=== PATIENT | male | born 1990 | race Caucasian/White ===

== ENCOUNTER 2017-03-10 21:58 | Emergency (ER) | payer OTHER, BC ==
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
[2017-03-11] MEDS ORDERED: HYDROCODONE/ACETAMINOPHEN 10-325 MG TABLET PO ONE (00:41)
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
[2017-03-11 02:25] VITALS: BP 148/74
== END 2017-03-11 02:25 | disposition home or self-care (01) ==
LOC: ER 21:58
DX: S63.613A Unspecified sprain of left middle finger, initial encounter (principal); S63.502A Unspecified sprain of left wrist, initial encounter; S50.12XA Contusion of left forearm, initial encounter; V43.62XA Car passenger injured in collision with other type car in traffic accident, initial encounter; F17.210 Nicotine dependence, cigarettes, uncomplicated
CPT/HCPCS: 99284; 73090; 73130; L3908 ×2

== ENCOUNTER 2017-03-13 11:28 | Emergency (ER) | payer OTHER, BC ==
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
[2017-03-13 13:43] VITALS: BP 127/74
== END 2017-03-13 13:43 | disposition home or self-care (01) ==
LOC: ER 11:28
DX: S62.663D Nondisplaced fracture of distal phalanx of left middle finger, subsequent encounter for fracture with routine healing (principal); F17.200 Nicotine dependence, unspecified, uncomplicated; X58.XXXD Exposure to other specified factors, subsequent encounter
CPT/HCPCS: 99283